=== PATIENT | female | born 1975 | race Caucasian/White ===

== ENCOUNTER 2017-06-30 09:15 | Day surgery (SDC) | payer OTHER ==
[2017-06-30] VITALS (7 sets, daily range): BP systolic 95–127; BP diastolic 54–83
[~2017-06-30] VITALS: Ht 162.6 cm; Wt 72.6 kg
[~2017-06-30 09:15] MED LIST: FEXO180T58 PO
[2017-06-30] MEDS ORDERED: LR 1,000 ML IV SCH ×2 (09:30→15:15)
[2017-06-30] MEDS ORDERED: LIDOCAINE 1% SDV 5 ML VIAL SQ ONE (09:30)
[2017-06-30 10:07] LABS: MEAN CORPUSCULAR HEMOGLOBIN 30.8 pg (27.0-33.0); MEAN CORPUSCULAR HGB CONC 34.4 g/dl (32.0-36.5); MEAN CORPUSCULAR VOLUME 89.7 fl (80.0-96.0); RED CELL DISTRIBUTION WIDTH 12.6 % (11.5-14.5)
[2017-06-30 10:28] LABS: CONTROL LINE UCG INT CTR LINE PRESENT
[2017-06-30] MEDS ORDERED: HYDROmorphone HCL 2 MG/ML 1ML VIAL (J1170) As Ordered ONE (11:58)
[2017-06-30] MEDS ORDERED: ONDANSETRON 4MG/2ML VIAL (J2405) As Ordered ONE (11:58)
[2017-06-30] MEDS ORDERED: MIDAZOLAM INJ 2 MG/2 ML VIAL (J2250) As Ordered ONE (11:58)
[2017-06-30] MEDS ORDERED: LIDOCAINE 2% INJ 100 MG/5 ML SDV (FOR ANES.) As Ordered ONE (11:58)
[2017-06-30] MEDS ORDERED: PROPOFOL 200 MG/20 ML VIAL As Ordered ONE ×2 (11:58→14:24)
[2017-06-30] MEDS ORDERED: KETOROLAC 60 MG/2 ML VIAL (J1885) As Ordered ONE (11:58)
[2017-06-30] MEDS ORDERED: ROCURONIUM BROMIDE 50 MG/5 ML VIAL/SYRINGE As Ordered ONE ×2 (11:58→12:04)
[2017-06-30] MEDS ORDERED: fentaNYL 250 MCG/5 ML INJECTION (J3010) As Ordered ONE (11:58)
[2017-06-30] MEDS ORDERED: dexameTHASONE 4 MG/ML 1ML VIAL (J1100) As Ordered ONE (11:58)
[2017-06-30] MEDS ORDERED: GLYCOPYRROLATE INJ 0.2 MG/ML 2 ML VIAL As Ordered ONE ×2 (12:01→12:22)
[2017-06-30] MEDS ORDERED: NEOSTIGMINE 10 MG/10 ML VIAL (J2710) As Ordered ONE (12:01)
[2017-06-30] MEDS ORDERED: MORPHINE 1MG/ML IN 0.9% NACL 100ML IV BAG As Ordered ONE (14:53)
[2017-06-30] MEDS ORDERED: ONDANSETRON 4MG/2ML VIAL (J2405) IV PRN (15:15)
[2017-06-30] MEDS ORDERED: NALBUPHINE HCL 10 MG/ML AMP (J2300) IV PRN (15:15)
[2017-06-30] MEDS ORDERED: IBUPROFEN 600 MG TAB PO PRN (15:15)
[2017-06-30] MEDS ORDERED: NALOXONE INJ 0.4 MG/1 ML VIAL (J2310) IV PRN (15:15)
[2017-06-30] MEDS ORDERED: MORPHINE 1MG/ML IN 0.9% NACL 100ML IV BAG IV PRN (15:15)
[2017-06-30] MEDS ORDERED: fentaNYL 100 MCG/2 ML INJECTION (J3010) IV PRN (15:15)
[2017-06-30] MEDS ORDERED: EPIDURAL/PCA KEYS XX PRN (15:15)
[2017-06-30] MEDS ORDERED: diphenhydrAMINE INJ 50MG/ML VIAL (J1200) IV PRN (15:15)
[2017-06-30] MEDS: LR 1,000 ML IV SCH ×2 (17:48→23:15)
[2017-07-01 04:00] VITALS: BP 125/74
[2017-07-01] MEDS ORDERED: NORCO, ANEXSIA 5/325MG TABLET (HYDROcodone/ACETAMINOPHEN) PO PRN (06:00)
--- NOTE | 2017-07-01 06:32 | RO ---
DATE OF PROCEDURE: 06/30/2017 PREPROCEDURE DIAGNOSES: Bleeding, pain, symptomatic fibroids and failed intrauterine device (IUD). POSTPROCEDURE DIAGNOSES: Bleeding, pain, symptomatic fibroids and failed intrauterine device (IUD). Findings as expected but with scarring from previous surgery around the right adnexa leading to the cystourethroscopy decision. PROCEDURE: Total robotic hysterectomy with left salpingectomy, removal of intrauterine device (IUD) and cystourethroscopy. It should be noted that the uterine weight was 417 grams. SURGEON: Dr. Katherine Jimenez SHEET TAILER: None. ANESTHESIA: General endotracheal anesthesia. ESTIMATED BLOOD LOSS:100cc BRIEF DESCRIPTION OF PROCEDURE AND FINDINGS: Sharifa was brought to the operating room where sufficient general endotracheal anesthesia was induced. She was prepped, draped and positioned in the usual sterile fashion. A Watson with the ability to backfill was placed in the bladder and the cervix was grasped with single tooth tenaculum. The intrauterine device string was not immediately visible but with a Danelle, we were able to just grab the string and pull the intrauterine device out intact, so her Mirena was removed without difficulty. The uterus was then sounded. It initially only sounded to 7 despite its readily palpable feel near to umbilicus on the abdomen and its immobility so that was a surprise but since there was clear resistance at 7 cm, we placed the uterine manipulator to there and then attention was turned to the abdomen. A semilunar incision was made inferior to the umbilicus. Sharp and blunt dissection were continued through the subcutaneous tissues to the level of the rectus fascia which was transversely incised, secured with #0 Vicryl retention sutures and the peritoneum was entered under direct visualization in open laparoscopic technique. The Donald cannula disposable trocar used for the robot was then placed. CO2 insufflation was begun. After adequate CO2 insufflation, the peritoneal cavity was visualized. As noted in the first picture, the uterus was very close to the umbilicus and essentially the trocar hit the uterus quite readily, not to injure it of course as you can see in the picture but because it was simply not that distant from the umbilicus as had been expected from the preoperative findings. We placed two left sided, one right sided port for the robot, docked the robot with the patient of course in Trendelenburg, ect., and then moved on to the robot console work. Manipulating the controls from the robot console, I evaluated the remaining left ovary. The right ovary and tube had been previously removed. Some photos were taken to show the scarring there. We then carefully dissected the left fallopian tube away from the left ovary maintaining good blood supply to the ovary and also dissected the utero-ovarian suspensory ligament on the left leaving the ovary in place. We then cauterized and transected the round ligament first on the left and then dissected through the broad with cold scissors both posteriorly and anteriorly. We were able to come a little bit more than fdc across with the broad ligament dissection across the bladder flap so that we could get a good sense of orientation. We then rotated the uterus to the patient's left exposing the right scar tissue and the remnant or whatever remained of the patient's round ligament which was cauterized and transected and the broad on that side was carefully dissected. Care was taken to avoid the ureter which appeared to have been displaced medially since the previous surgery. Nevertheless, we worked to avoid that and completed the creation of the bladder flap and then cauterize the vessels but these large fibroids especially on the right side, multiple accessory vessels had been recruited. We then carefully dissected anteriorly to keep the bladder away, carefully cauterized the uterine vasculature bilaterally and then we then carefully made the colpotomy anteriorly avoiding the bladder and the bowel and the ureters and continued that colpotomy through where we had already dissected the vessels on the left side and then worked posteriorly just above the insertion of the uterosacrals working both medial and superior to the ureter there. We continued the colpotomy fdc across the posterior aspect and then moved on to working on the right side. There were multiple accessory vessels here, more than is typical even with fibroids, but we were able to rotate the uterus now that it was partially detached and bring those anteriorly so we could have access without working close to the bowel or the bladder. Nevertheless even when I thought I had cauterized them, we did have a couple pumping vessels we had to subsequently control. With this done, we were able to complete the colpotomy and bring the uterus down toward the vagina. It would not fit entirely intact because of its size and so we bivalved the cervix after removing the manipulator and then off the uterus on the left side so that after bivalving the cervix so that we could deliver just that left side and then bring the fibroid and remaining right side down through as shown in the pictures, the uterus was not completely bivalved but it was so that those two parts could come down individually. During this dissection, the fallopian tube came off and so it was delivered into the vagina after the uterus had been removed and the tube was then removed. After the removal of the uterus, it was weighed and it weighed 417 grams. I used the V-Loc suture to close the cuff. Again there was another pumper on the right side so we started with the right angle and then closed the left angle and then closed the rest of the cuff, of course incorporating the uterosacrals as is appropriate. When we had completed the closure and gotten control of the bleeding vessels on the right side, there was some puckering in the peritoneum there. I was able to identify the ureter cephalad and it was certainly medial to where the typical course of the ureter would be but it may be simply congenital or it may be related to the fact at the previous dissection, they may have freed it up and moved it to keep it away from the previous dissection or it may be simply the pressures of the fibroid and the altered pressures within the pelvis. Nevertheless, with puckering of the tissues and my lack of desire to undo that suturing because of the bleeding that it had controlled, we decided to go ahead and do a cystourethroscopy to confirm that the ureters were okay, and of course the bladder as well. We had the cuff itself closed and each of the pedicles was dry and so the robot was undocked, instruments were removed and the CO2 was allowed to escape the abdomen and patient was removed from Trendelenburg. We then proceeded to remove the Watson which we had used to backfill to confirm location of the bladder, etc. and then placed 70-degree cystoscope. We were able to get a 360 degree survey of the bladder. We were able to visualize the ureteral orifices. We were able to see normal jets of urine bilaterally. We were able to see the absence of suture or evidence of sharp or cautery injury to the bladder and with normal cystourethroscopy completed and with good closure at the cuff, we turned our attention back to closing the robotic wounds and at the umbilicus, the fascia layer was closed with #0 Vicryl retention sutures and #3-0 Vicryl was used in subcuticular stitches at the skin on all of the wounds and dry sterile dressings were then applied. ESTIMATED BLOOD LOSS: Despite the smaller pumpers that we encountered, we were able to maintain blood loss at about 100 mL. FLUID REPLACEMENT: Crystalloid. COMPLICATIONS: None. SPECIMEN: Uterus with right fallopian tube and of course fibroid and intrauterine device. CONDITION AND DISPOSITION: Sharifa tolerated the procedure well and was recovering in the recovery room in good condition. Edited: axel 07/08/2017 0943 MTDD
[2017-07-01] MEDS: LR 1,000 ML IV SCH (07:15)
[2017-07-01 08:00] VITALS: BP 123/75
[2017-07-01 08:02] LABS: MEAN CORPUSCULAR HGB CONC 34.3 g/dl (32.0-36.5); MEAN CORPUSCULAR VOLUME 90.6 fl (80.0-96.0); RED CELL DISTRIBUTION WIDTH 12.7 % (11.5-14.5); WHITE BLOOD COUNT 13.1 10^3/uL (4.0-10.0)
[2017-07-01] MEDS ORDERED: NORC1TAB4 PO (09:18)
[2017-07-01] MEDS ORDERED: IBUP-1022 PO (09:18)
== END 2017-07-01 09:50 | disposition home or self-care (01) ==
LOC: M SDC 09:15 → M PED 15:23 → M SDC 07-01 09:50
PROVIDERS: ATTEND Obstetrics & Gynecology
DX: D25.9 Leiomyoma of uterus, unspecified (principal); N93.9 Abnormal uterine and vaginal bleeding, unspecified; N72 Inflammatory disease of cervix uteri; J45.909 Unspecified asthma, uncomplicated
CPT/HCPCS: 36415; 58301; 58573; 84703; 85027; 86850; 86900; 86901; 88307; 96372; 96374; 96375; J0690; J1100; J1170; J1885; J2250; J2405; J2710; J3010